=== PATIENT | male | born 1955 | race American Indian/Alaskan Native ===

== ENCOUNTER 2017-11-21 08:53 | Day surgery (SDC) | payer BC ==
[2017-11-14 11:47] VITALS: BMI 26.6
[2017-11-21 09:20] VITALS: RESP 18
[2017-11-21] MEDS ORDERED: ceFAZolin IV 1 gm in Dextrose 0 GM/0 ML BAG IVPB ONE (09:52)
[2017-11-21] MEDS ORDERED: Bupivacaine 0.25% 20 ML INJ IJ ONE (09:52)
[2017-11-21] MEDS ORDERED: Lidocaine Hydrochloride 5 ML INJ ONE (09:57)
[2017-11-21] MEDS ORDERED: Lidocaine/Epinephrine 1% 1:100000 10 ML IJ ONE (09:58)
[2017-11-21 11:14] VITALS: BP 137/97; PULSE 66; TEMP 97; O2SAT 100
--- NOTE | 2017-11-22 19:25 | PCM.SURG1 ---
Surgeon's Initial Post Op Note - Surgeon's Notes Surgeon: Dr. Jacob [employer]: Yudi Andrade, PGY2 Type of Anesthesia: Local Pre-Operative Diagnosis: left front scalp subcutaneous mass Operative Findings: subcutaneous mass with sebaceous contents, adequate hemostasis obtained by direct pressure by the end of the case Post-Operative Diagnosis: same Operation Performed: excision of left front scalp subcutaneous lesion Specimen/Specimens Removed: left frontal scalp subcutanoues mass Estimated Blood Loss: EBL {In ML}: 5 Blood Products Given: N/A Drains Used: No Drains Post-Op Condition: Fair Date of Surgery/Procedure: 11/21/17 Time of Surgery/Procedure: 11:00
--- NOTE | 2017-11-23 17:42 | OP ---
PROCEDURE DATE: 11/21/2017 SURGEON: Shasta Jacob MD [employer] PROFESSIONAL: Yudi Andrade DO ANESTHESIA: Local. PREOPERATIVE DIAGNOSIS: Subcutaneous mass, left anterior scalp. POSTOPERATIVE DIAGNOSIS: Subcutaneous mass, left anterior scalp. PROCEDURE: Excision of mass of left anterior scalp. DESCRIPTION OF OPERATION: With the patient in the supine position, the left upper face and lower scalp were prepped and draped in the usual sterile manner. The patient was noted to have a 1 cm soft subcutaneous mass with a central punctum located at the junction between the scalp and the upper face, and the skin surrounding this was infiltrated with 1% lidocaine with epinephrine. An ovoid incision was made encompassing the central punctum and the skin was divided down to the capsule of what appeared to be a sebaceous cyst. The cyst was sharply divided from the surrounding galeal tissue and then excised. The wound was compressed for hemostasis and when hemostasis was complete, the incision was closed with interrupted subcuticular sutures of 4-0 Monocryl and Dermabond. The patient tolerated the procedure well and transferred back to in stable condition. Estimated blood loss for the procedure was 5 mL. Shasta Jacob MD
== END 2017-11-21 11:30 | disposition home or self-care (01) ==
LOC: C.SDS 08:53
PROVIDERS: ATTEND Specialist
DX: L72.11 Pilar cyst (principal)